=== PATIENT | female | born 2000 | race Two or more races ===

== ENCOUNTER 2023-01-10 03:07 | Emergency (ER) | payer OTHER ==
[~2023-01-10] VITALS: Ht 154.9 cm; Wt 59.0 kg
[2023-01-10] MEDS ORDERED: IV NS 0.9% 1,000 ML BAG IV ONE (03:30)
[2023-01-10] MEDS ORDERED: ONDANSETRON HCL/PF 4 MG/2 ML VIAL IVP ONE (03:30)
[2023-01-10] MEDS ORDERED: KETOROLAC TROMETHAMINE INJ 30 MG/ML VIAL IV ONE (03:30)
--- NOTE | 2023-01-10 03:45 | NUR ---
BIBSISTER. BODYACHE, HEADACHE, NAUSEA, VOMITING & ABDOMINAL PAIN X 4 DAYS BEEN TAKING NYQUIL, DAYQUIL AND IBUPROPHEN. EPIGASTRIC PAIN RATED 8.5/10. R BACK PAIN RATED 10/10. TACHYCARDIA HEART RATE OF 121. FEVER, BODY TEMP: 100.8. POSITIONED PATIENT IN COMFORTABLE POSITION. ATTACHED TO THE MONITOR. VITALS CHECKED.
--- NOTE | 2023-01-10 03:45 | NUR ---
Urine sample collected and sent to lab.
[2023-01-10] MEDS ORDERED: ONDANSETRON HCL/PF 4 MG/2 ML VIAL ONE (04:01)
--- NOTE | 2023-01-10 04:05 | NUR ---
Covid swab collected and sent to lab.
--- NOTE | 2023-01-10 04:09 | NUR ---
IV cannula at [place] [id number]. Blood drawn and sent to lab. Addendum: 01/10/23 at 0536 by MELITON IV NS 0.9 1L Start time: 354, End time: 454. at [place] [id number].
[2023-01-10 04:38] LABS: BASOPHILS % (AUTO) 0.2 % (0.0-2.0); HEMATOCRIT 38 % (33-45); HEMOGLOBIN 12.5 g/dL (11.5-14.8); LYMPHOCYTES # (AUTO) 0.3 K/uL (0.8-4.8); MEAN CORPUSCULAR HGB CONC 33 g/dl (31.0-36.0); MEAN CORPUSCULAR VOLUME 91 fL (82-100); MONOCYTES # (AUTO) 0.8 K/uL (0.1-1.30); NEUTROPHILS % (AUTO) 89.8 % (43.0-81.0); PLATELET COUNT (AUTO) 256 K/uL (150-450); RED BLOOD CELL COUNT(AUTO) 4.13 MIL/uL (4.0-5.2); WHITE BLOOD COUNT (AUTO) 11.2 K/uL (4.3-11.0)
[2023-01-10 04:53] LABS: ALBUMIN 3.7 g/dL (3.4-5.0); BILIRUBIN,DIRECT 0.2 mg/dL (0.0-0.2); BILIRUBIN,TOTAL 0.9 mg/dL (0.2-1.0); CALCIUM, SERUM 8.6 mg/dL (8.5-10.1); CREATININE 0.7 mg/dL (0.6-1.3); POTASSIUM 3.4 mmol/L (3.5-5.1); TOTAL PROTEIN, SERUM 7.8 g/dL (6.4-8.2)
--- NOTE | 2023-01-10 05:00 | NUR ---
application technical designer at bedside.
[2023-01-10] MEDS ORDERED: KETOROLAC TROMETHAMINE 15 MG/ML VIAL ONE (05:26)
[2023-01-10] MEDS ORDERED: ONDA4TAB11 PO (05:41)
[2023-01-10] MEDS ORDERED: KETO10TA2 PO (05:55)
--- NOTE | 2023-01-10 06:14 | NUR ---
IV removed. Catheter intact and site benign. Pressure and 4x4 applied to site. No bleeding noted.
--- NOTE | 2023-01-10 06:15 | NUR ---
Patient discharged to home in stable condition. Written and verbal after care instructions given to pt and pt's sister. Patient and pt's sister verbalizes understanding of instruction.
[2023-01-10 06:16] VITALS: BP 128/75
== END 2023-01-10 06:17 | disposition home or self-care (01) ==
LOC: ER 03:09
DX: B34.9 Viral infection, unspecified (principal); R10.84 Generalized abdominal pain; R11.2 Nausea with vomiting, unspecified; Z20.822 Contact with and (suspected) exposure to COVID-19
CPT/HCPCS: 99284; 96374; 71045; 96361; 96375; 87426; 85025; 80048; 83690; 80076; 36415; 84702; J2405; J7030; J1885; C9803